=== PATIENT | female | born 1965 | race Two or more races ===

== ENCOUNTER 2017-07-27 01:56 | Emergency (ER) | payer OTHER ==
[2017-07-27] MEDS: ONDANSETRON 4 MG INJ IV (03:12)
[2017-07-27] MEDS: MECLIZINE 12.5 MG TAB PO (03:12)
[2017-07-27] MEDS: SOD CHLORIDE 0.9% 1,000 ML IV (03:12)
[2017-07-27 05:35] LABS: URINE BLOOD (Dip) POC Trace-lysed (NEGATIVE); URINE GLUCOSE (Dip) POC Negative (NEGATIVE); URINE KETONES (Dip) POC Negative (NEGATIVE); URINE LEUKOCYTE EST (Dip) POC Trace (NEGATIVE); URINE NITRITE (Dip) POC Negative (NEGATIVE); URINE TOTAL PROTEIN POC Negative (NEGATIVE)
== END 2017-07-27 05:48 | disposition home or self-care (01) ==
LOC: E/R 01:56
DX: R42 Dizziness and giddiness (principal)
CPT/HCPCS: 70450; 81003; 93005; 96374; 99285-25